=== PATIENT | male | born 1965 | race Caucasian/White ===

== ENCOUNTER 2017-02-16 19:14 | Emergency (ER) | payer SELFPAY ==
[~2017-02-16] VITALS: Ht 182.9 cm; Wt 87.6 kg
[2017-02-16] MEDS ORDERED: GLUCOTROL10 MG PO (19:28)
[2017-02-16] MEDS ORDERED: LOPID600 MG PO (19:28)
[2017-02-16] MEDS ORDERED: KEFLEX500 M1 PO (21:03)
[2017-02-16] MEDS ORDERED: PERCOCET 5/325M1 TAB PO (21:03)
[2017-02-16 21:17] VITALS: BP 148/90
== END 2017-02-16 21:15 | disposition home or self-care (01) | DRG 914 ==
LOC: ED 19:14
DX: S61.442A Puncture wound with foreign body of left hand, initial encounter (principal); W26.8XXA Contact with other sharp object(s), not elsewhere classified, initial encounter; W45.8XXA Other foreign body or object entering through skin, initial encounter; W21.89XA Striking against or struck by other sports equipment, initial encounter; Y93.89 Activity, other specified; Y92.89 Other specified places as the place of occurrence of the external cause